=== PATIENT | female | born 1945 | race Caucasian/White ===

== ENCOUNTER 2020-06-17 07:39 | Day surgery (SDC) | payer MEDICARE, OTHER ==
[~2020-06-17] VITALS: Ht 167.6 cm; Wt 68.3 kg
[~2020-06-17 07:39] MED LIST: CHOL100011 PO; CLON-364 PO; CODE1CAP23 PO; CYCL5TAB PO; OXYC1TAB7 PO; PRAV10TA2 PO; TOPI25TA32 PO; ZOLM5TAB8 PO
[2020-06-17 08:27] VITALS: BP_SYST 123; BP_SYST 125; BP_DIAS 79
[2020-06-17] MEDS ORDERED: ZINC100T PO (08:42)
[2020-06-17] MEDS ORDERED: VITAMIND3 (08:42)
[2020-06-17] MEDS ORDERED: CHLORHEXIDINE 15 ML UDC ONE (08:43)
[2020-06-17] MEDS ORDERED: MIDAZOLAM 1 MG/ML, 2ML ONE (08:46)
[2020-06-17] MEDS ORDERED: FENTANYL PF 250 MCG/5ML ONE (08:46)
[2020-06-17] MEDS ORDERED: CHLORHEXIDINE 15 ML UDC MM ONE (09:00)
[2020-06-17] MEDS ORDERED: LACTATED RINGERS 1,000 ML IV SCH (09:00)
[2020-06-17] MEDS ORDERED: PROPOFOL 10 MG/ML, 20ML ONE (10:34)
[2020-06-17] MEDS ORDERED: CEFAZOLIN 1,000 MG ONE (10:37)
[2020-06-17] MEDS ORDERED: EPHEDRINE 50 MG/ML, 1ML ONE (10:43)
[2020-06-17] MEDS ORDERED: ONDANSETRON 2MG/ML, 2ML ONE (11:17)
[2020-06-17] MEDS ORDERED: ONDANSETRON 2MG/ML, 2ML IVPush PRN (11:30)
[2020-06-17] MEDS ORDERED: morphine SULFATE 10 MG/ML, 1ML IVPush PRN (11:30)
[2020-06-17] MEDS ORDERED: PROMETHAZINE 25 MG/ML, 1ML IVPush PRN (11:30)
[2020-06-17] MEDS ORDERED: LABETALOL 5MG/ML, 20ML IV PRN (11:30)
[2020-06-17] MEDS ORDERED: FENTANYL PF 100 MCG/2ML IV PRN (11:30)
[2020-06-17] MEDS ORDERED: hydrALAzine 20 MG/ML, 1ML IV PRN (11:30)
[2020-06-17] MEDS ORDERED: OXYcodone 5 MG/5 ML ORAL.SOL UDC PO PRN (11:30)
[2020-06-17] MEDS ORDERED: ACETAMINOPHEN 325 MG TABLET PO PRN (11:30)
[2020-06-17] MEDS ORDERED: MEPERIDINE/PF 25MG/0.5ML IVPush PRN (11:30)
== END 2020-06-17 14:40 | disposition home or self-care (01) ==
LOC: OUT 07:39
PROVIDERS: ATTEND Urology
DX: N20.0 Calculus of kidney (principal); E78.5 Hyperlipidemia, unspecified; Z88.0 Allergy status to penicillin; Z88.2 Allergy status to sulfonamides; Z79.899 Other long term (current) drug therapy; Z79.82 Long term (current) use of aspirin; Z20.828 Contact with and (suspected) exposure to other viral communicable diseases
CPT/HCPCS: 50590; 87635; 93005; J0690; J2250; J2405; J2704; J3010; J7120; U0003